=== PATIENT | male | born 1965 | race Caucasian/White ===

== ENCOUNTER 2024-06-06 09:16 | Emergency (ER) | payer OTHER, SELFPAY ==
[2024-06-06 09:17] VITALS: BP 201/113; PULSE 96; RESP 18; TEMP 36.1; O2SAT 97; BMI 34.4
--- NOTE | 2024-06-06 09:41 | EKG12_ITS ---
Test Reason : Blood Pressure : / mmHG Vent. Rate : 088 BPM Atrial Rate : 088 BPM P-R Int : 166 ms QRS Dur : 114 ms QT Int : 370 ms P-R-T Axes : 027 -39 021 degrees QTc Int : 447 ms Normal sinus rhythm Left axis deviation Pulmonary disease pattern Abnormal ECG Confirmed by Casey Glasgow ([id number]), department editor CHONG FLORES ([id number]) on 06/07/2024 10:58:29 AM Referred By: Confirmed By:Casey Glasgow
--- NOTE | 2024-06-06 09:42 | EDS_ITS ---
HPI History of Present Illness Chief Complaint: General Illness Narrative Narrative: 58-year-old male who denies significant past medical history presents with multiple somatic complaints ranging from hand and feet swelling for the last month to recent shortness of breath. He states that about a month ago, he noticed that his hands were swollen bilaterally. He had difficulty closing them completely. The swelling went to both of his feet as well. He does not take medication for elevated blood pressure. He states he saw primary care provider about a week ago in [place] where he also temporarily resides, who told him to take an aspirin. This morning, he awoke with mild shortness of breath but denies any chest pain. No nausea or vomiting. No headaches. He noticed that his right eye was swollen and that he had swelling into his neck as well. He is concerned about his diffuse swelling that started in his hands and feet over the last month, and is now spreading all over his body. [facility] Medical History Asthma Elevated blood pressure reading in office with white coat syndrome, without diagnosis of hypertension Home Medications ?Medication ?Instructions ?Recorded ?Last Taken ?Type amlodipine 5 mg tablet 5 mg PO DAILY #30 tabs 06/06/24 Unknown Rx tramadol 50 mg tablet 50 mg PO Q6H 3 days #12 tabs 06/06/24 Unknown Rx Allergy/AdvReac Type Severity Reaction Status Date / Time No Known Allergies Allergy Verified 06/06/24 09:18 Surgical History No significant past surgical history Social History Smoking Status: Light Smoker (<10/day) alcohol intake: never ROS ROS ED ROS Narrative Constitutional: No fever, no chills. HEENT: No sore throat. No neck pain. No loss of vision. No rhinorrhea. Cardiovascular: No chest pain. No palpitations. Bilateral hand edema and foot edema x 1 month. Now noted swelling of his right eye, and right side of his neck. Respiratory: No cough, no shortness of breath. Abdominal: No abdominal pain. No nausea. No vomiting. Genitourinary: No dysuria. No hematuria. Musculoskeletal: No myalgias. No arthralgias. Neurologic: No headaches. No dizziness. No lightheadedness. Skin: No rash. No change in color. Psychiatric: No depression. No anxiety. EXAM Physical Exam Narrative Exam Narrative: Afebrile. Vital signs noted. Elevated blood pressure of 201/113 in triage. Regular rate and rhythm. Lungs are essentially clear to auscultation bilaterally with the exception of bibasilar rales. Abdomen soft and nontender with positive bowel sounds. No appreciable ascites. No pitting edema of bilateral lower extremities. Neurological examination nonfocal and nonlateralizing. Const Vital Signs: 06/06/24 09:17 06/06/24 09:29 06/06/24 11:17 Temperature 97.0 F L Temperature Source Temporal Pulse Rate 96 80 Respiratory Rate 18 12 Respiratory Effort Normal Non-Labored Respiratory Pattern Normal Blood Pressure 201/113 H 158/98 H Blood Pressure Mean 142 118 Pulse Ox 97 Oxygen Delivery Method Room Air Room Air MDM MDM MDM Narrative Medical decision making narrative: Differential diagnosis includes but not limited to hypertensive urgency versus emergency, new onset CHF secondary to hypertension. Comprehensive workup was pursued. He has elevated blood pressure here in triage but he took off the blood pressure cuff because they stated that it was not reading. It may have to recycle because his blood pressure is extremely elevated. I ordered him hydralazine 10 mg intravenously initially. EKG was obtained and interpreted by myself independently as normal sinus rhythm at 88 bpm without ectopy or acute ST changes. No STEMI. I reviewed his laboratory work and he has normal white count of 10.3, hemoglobin normal at 14.4 and platelet count normal at 321. Electrolyte panel is significant for chloride of 109 which I think is nonspecific, normal BUN of 14 and creatinine normal at 0.9. His glucose is elevated at 132 but he has normal anion gap of 5. LFTs are grossly unremarkable. High-sensitivity troponin is 6 with BNP normal at 22.2 so I doubt congestive heart failure. Chest x-ray 1 view interpreted by myself independently shows no pneumonia, no pneumothorax, no CHF. I reviewed the radiology report which confirms my independent interpretation but comments on left basilar atelectasis versus scarring. Urinalysis obtained and reviewed and while he has proteinuria, there is no evidence of infection or ketones. I do not feel antibiotics are indicated. Repeat examination shows his blood pressure is now 158/98. I do feel that he needs to be started on medication as his symptoms have been ongoing for a month, and in review of his previous problem list he had elevated blood pressure reading in the office with whitecoat syndrome without diagnosis of hypertension. I do feel that his reported swelling may be secondary to elevated blood pressure. I wrote him a prescription for amlodipine 5 mg to start take daily. He will keep a log of his blood pressures as well. He was referred to a primary care provider. He states that he has joint aches in his knees and ankles and wrists from all the swelling so I wrote him a prescription for tramadol to take over the next 3 days. He will call his primary care provider in [place] tomorrow as well. Return instructions to the emergency department were reviewed. Disposition is discharged home in stable condition. History & Record Review Discussion w/independent historian: Patient Lab Data Attestation: I reviewed the patient's lab results. Labs: Laboratory Results - last 24 hr 06/06/24 06/06/24 09:50 10:15 WBC 10.3 RBC 4.95 Hgb 14.4 Hct 42.8 MCV 86.5 MCH 29.1 MCHC 33.6 RDW Std Deviation 40.2 RDW Coeff of Tres 13.0 Plt Count 321 MPV 8.6 Immature Gran % (Auto) 0.200 Neut % (Auto) 60.0 Lymph % (Auto) 26.9 Lassen % (Auto) 8.4 Eos % (Auto) 3.9 Baso % (Auto) 0.6 Absolute Neuts (auto) 6.2 Absolute Lymphs (auto) 2.77 Nucleated RBC % 0 Sodium 142 Potassium 3.9 Chloride 109 H Carbon Dioxide 28.0 Anion Gap 5 BUN 14 Creatinine 0.90 Estim Creat Clear Calc 126.97 Est GFR (MDRD) Af Amer 112 Est GFR (MDRD) Non-Af 92 BUN/Creatinine Ratio 15.5 Glucose 132 H Calcium 8.8 Total Bilirubin 0.40 AST 16 ALT 34 Alkaline Phosphatase 110 Troponin I High Sens 6 B-Natriuretic Peptide 22.2 Total Protein 7.2 Albumin 3.5 Globulin 3.7 Albumin/Globulin Ratio 0.9 Urine Color Yellow Urine Clarity Clear Urine pH 7.0 Ur Specific [place] 1.015 Urine Protein 30 H Urine Glucose (UA) Normal Urine Ketones Negative Urine Occult Blood Negative Urine Nitrite Negative Urine Bilirubin Negative Urine Urobilinogen 1 H Ur Leukocyte Esterase 25 H Urine RBC Not Reportable Urine WBC 0-5 SEEN Ur Squamous Epith Cells 0 SEEN Amorphous Sediment 1+ Urine Bacteria 2+ Urine Mucus 0 SEEN Radiography Diagnostic Testing: Clinical Impression(s) from Imaging Studies Chest X-Ray 06/06/24 09:59 IMPRESSION: Mild left basilar atelectasis or scarring. Electronically Signed: Laura Jaramillo MD at 10:31 EDT , Discharge Plan Triage Chief Complaint: General Illness ED Provider: Sg Wells Dx/Rx/DC Orders Clinical Impression: Hypertension, Edema, Arthralgia Instructions: ED Arthralgia, ED Peripheral Edema, Bilateral, ED Hypertension New Begin Treatment Prescriptions: New amlodipine 5 mg tablet 5 mg PO DAILY Qty: 30 0RF tramadol 50 mg tablet 50 mg PO Q6H 3 Days Qty: 12 0RF Primary Care Provider: Care Physician,No Primary Referrals: Silverio Barbosa MD [Med Staff - Active Staff] - As soon as possible Care Physician,No Primary [Primary Care Provider] - Activity Restrictions/Additional Instructions: Keep a log of your blood pressures. Follow-up with your primary care provider. Return with new or worsening symptoms, and consistently elevated blood pressure. Print Language: Azeri Disposition Disposition: Home, Self Care
--- NOTE | 2024-06-06 09:44 | NURSING ---
NO OLD EKG
[2024-06-06] MEDS: hydrALAZINE 20 MG/ML Vial 10 MG IV (09:52)
[2024-06-06 09:55] LABS: Absolute Lymphocyte Count 2.77 X10^3/uL (0.83-4.51); Absolute Neutrophil Count 6.2 X10^3/uL (2.0-7.7); Basophil# 0.06 X10^3/uL; Basophil% 0.6 % (0-1); Eosinophils% 3.9 % (0-5); Hematocrit 42.8 % (40-54); Hemoglobin 14.4 g/dL (13.0-16.5); Lymphocyte # 2.77 X10^3/ul (0.83-4.51); Lymphocyte % 26.9 % (19-41); Mean Corp Hgb Conc 33.6 g/dL (32-36); Mean Corpuscular Hgb 29.1 pg (27.0-32.0); Mean Corpuscular Volume 86.5 fL (80-94); Mean Platelet Vol. 8.6 fl (6.2-12.0); Monocyte# 0.87 X10^3/uL; Monocyte% 8.4 % (0-10); NRBC Flagged by Analyzer 0 % (0-5); Neutrophil # 6.19 X10^3/uL (2.7-7.7); Platelet Count 321 K/mm3 (150-450); RBC Distribution Width SD 40.2 fl (35.1-43.9); Red Blood Count 4.95 M/mm3 (4.6-6.2); White Blood Count 10.3 K/mm3 (4.4-11.0)
--- NOTE | 2024-06-06 09:59 | RAD_ITS ---
HISTORY: shortness of breath. TECHNIQUE: XR Chest 1 View. COMPARISON: None. FINDINGS: CARDIOMEDIASTINAL BORDERS: Cardiac silhouette within normal limits in size. Mediastinal contour unremarkable. LUNGS: Very mild linear opacity at the left lung base. PLEURA: No pleural effusion or pneumothorax seen. OSSEOUS STRUCTURES: Degenerative change. RAD/Chest 1 View (Portable) IMPRESSION: Mild left basilar atelectasis or scarring. Electronically Signed: Laura Jaramillo MD at 10:31 EDT ,
[2024-06-06 10:15] LABS: BNP,B-Type NATRIURETIC PEPTIDE 22.2 pg/mL (0-100)
[2024-06-06 10:18] LABS: ALB/GLOB Ratio 0.9 RATIO (0.9-2.4); AST(SGOT) 16 U/L (15-37); Alanine Aminotransfer ALT/SGPT 34 U/L (16-61); Albumin, Serum 3.5 g/dL (3.2-5.0); Alkaline Phosphatase 110 U/L (45-117); Anion Gap 5 (5-15); BUN 14 mg/dL (7-18); BUN/Creat Ratio 15.5 RATIO (10-20); Calcium,Total 8.8 mg/dL (8.5-10.1); Chloride 109 mmol/L (98-107); EST Glomerular Filtration Rate 92 mL/min (>60); Est Glom Filt Rate - Afr Amer 112 mL/min (>60); Estimated Creatinine Clearance 126.97 ml/min; Globulin 3.7 g/dL (2.2-4.2); Glucose 132 mg/dL (74-106); Potassium 3.9 mmol/L (3.5-5.1); Protein, Total 7.2 g/dL (6.4-8.2); Sodium Level 142 mmol/L (136-145); Troponin-I HS 6 pg/mL (3.0-78.0)
[2024-06-06 10:20] LABS: Mucous, Urine 0 SEEN /hpf (<or=2+); Squamous Epithelial Cells - UA 0 SEEN /hpf (0-5)
[2024-06-06 10:50] LABS: Color, Urine Yellow (Yellow); Glucose, Dipstick Normal (Normal); Ketone-Dipstick Negative (Negative); Leukocyte Esterase-Dipstick 25 /ul (Negative); Nitrite-Dipstick Negative (Negative); Occult Blood-Urine Negative /ul (Negative); Protein-Dipstick 30 mg/dl (Negative); Specific Gravity, Urine 1.015 (1.002-1.030); Urine Bilirubin Dipstick Negative (Negative); Urine Clarity Clear (Clear); Urine Urobilinogen 1 mg/dl (Normal)
[2024-06-06 11:17] VITALS: BP 158/98; PULSE 80; RESP 12
[2024-06-06 11:26] LABS: White Blood Cells 0-5 SEEN /hpf (0-5)
[2024-06-06 11:27] LABS: Amorphous Sediment 1+; Bacteria 2+ /hpf (None Seen)
[2024-06-06 12:09] VITALS: BP 165/84; PULSE 78; RESP 19; TEMP 36.6; O2SAT 99
== END 2024-06-06 12:10 | disposition home or self-care (01) ==
PROVIDERS: Emergency Provider Emergency Medicine; Visit Provider Emergency Medicine
DX: I10 Essential (primary) hypertension (principal); F17.200 Nicotine dependence, unspecified, uncomplicated; R60.9 Edema, unspecified; M25.561 Pain in right knee; M25.562 Pain in left knee; M25.571 Pain in right ankle and joints of right foot; M25.572 Pain in left ankle and joints of left foot; M25.531 Pain in right wrist; M25.532 Pain in left wrist; R06.02 Shortness of breath
CPT/HCPCS: 71045; 80053; 81001; 83880; 84484; 85025; 93005; 96374; 99284; A4216